=== PATIENT | male | born 1970 | race Caucasian/White ===

== ENCOUNTER → 2017-04-18 | Outpatient (REF) | payer OTHER | LOC: M SFHCPLAZ 08:02 | PROVIDERS: ATTEND Internal Medicine | DX: Z11.3 Encounter for screening for infections with a predominantly sexual mode of transmission (principal); J34.89 Other specified disorders of nose and nasal sinuses ==

== ENCOUNTER → 2020-08-28 | Outpatient (CLI) | payer OTHER ==
[~2020-08-28] MED LIST: LORA-243 PO; MELA3TAB49 PO; PRAZ2CAP PO; VALA500T5 PO
== END ==
LOC: M LABSMTC 08:20
PROVIDERS: ATTEND Anesthesiology
DX: Z01.812 Encounter for preprocedural laboratory examination (principal); Z11.52 Encounter for screening for COVID-19

== ENCOUNTER 2020-09-02 06:37 | Day surgery (SDC) | payer OTHER ==
[~2020-09-02] VITALS: Ht 180.3 cm; Wt 100.2 kg
[2020-09-02] MEDS ORDERED: LIDOCAINE 2% MDV 20ML VIAL As Ordered ONE (06:47)
[2020-09-02] MEDS ORDERED: LIDOCAINE 2% 100MG/5ML SDV (FOR ANES.) As Ordered ONE (06:47)
[2020-09-02] MEDS ORDERED: propofoL 200 MG/20 ML VIAL As Ordered ONE ×2 (06:47→07:41)
--- NOTE | 2020-09-02 07:56 | ROOR ---
Patient Name: Lokesh Alexandra Procedure Date: 09/02/2020 7:31 AM Date of : 1970 Age: 50 Room: [facility] Gender: Male Note Status: Finalized Procedure: Colonoscopy Indications: Screening for colorectal malignant neoplasm Providers: Mich Castro Jr, MD Referring MD: Alfonso Coyle, ASHLYN WU MD Requesting Provider: Medicines: Propofol per Anesthesia Complications: No immediate complications. Procedure: Pre-Anesthesia Assessment: - Prior to the procedure, a History and Physical was performed, and patient medications and allergies were reviewed. The patient is competent. The risks and benefits of the procedure and the sedation options and risks were discussed with the patient. All questions were answered and informed consent was obtained. Patient identification and proposed procedure were verified by the physician and the nurse in the pre-procedure area and in the procedure room. Mental Status Examination: alert and oriented. Airway Examination: normal oropharyngeal airway and neck mobility. Respiratory Examination: clear to auscultation. CV Examination: normal. ASA Grade Assessment: II - A patient with mild systemic disease. After reviewing the risks and benefits, the patient was deemed in satisfactory condition to undergo the procedure. The anesthesia plan was to use moderate sedation / analgesia (conscious sedation). Immediately prior to administration of medications, the patient was re-assessed for adequacy to receive sedatives. The heart rate, respiratory rate, oxygen saturations, blood pressure, adequacy of pulmonary ventilation, and response to care were monitored throughout the procedure. The physical status of the patient was re-assessed after the procedure. The Colonoscope was introduced through the anus and advanced to the cecum, identified by appendiceal orifice and ileocecal valve. The colonoscopy was performed without difficulty. The patient tolerated the procedure well. The quality of the bowel preparation was adequate. Findings: The rectum, recto-sigmoid colon, descending colon, transverse colon, ascending colon, cecum, appendiceal orifice and ileocecal valve appeared normal. A diminutive polyp was found in the sigmoid colon. The polyp was removed with a jumbo cold forceps. Resection and retrieval were complete. Impression: - The rectum, recto-sigmoid colon, descending colon, transverse colon, ascending colon, cecum, appendiceal orifice and ileocecal valve are normal. - One diminutive polyp in the sigmoid colon, removed with a jumbo cold forceps. Resected and retrieved. Recommendation: - Discharge patient to home (ambulatory). - Repeat colonoscopy in 5-10 years for surveillance based on pathology results. Procedure Code(s): --- Professional --- 20009, Colonoscopy, flexible; with biopsy, single or multiple Diagnosis Code(s): --- Professional --- Z12.11, Encounter for screening for malignant neoplasm of colon K63.5, Polyp of colon CPT copyright 2019 [employer]. All rights reserved. The codes documented in this report are preliminary and upon buggy driver review may be revised to meet current compliance requirements. Mich Castro MD Mich Castro Jr, MD 09/02/2020 7:55:46 AM Electronically signed by Mich Castro Jr, MD Number of Addenda: 0 Note Initiated On: 09/02/2020 7:31 AM Estimated Blood Loss: Estimated blood loss: none.
[2020-09-02 08:13] VITALS: BP 130/67
== END 2020-09-02 08:23 | disposition home or self-care (01) ==
LOC: M OPP 06:37
PROVIDERS: ATTEND Surgery
DX: Z12.11 Encounter for screening for malignant neoplasm of colon (principal); K63.5 Polyp of colon; I48.91 Unspecified atrial fibrillation; G47.30 Sleep apnea, unspecified; F17.210 Nicotine dependence, cigarettes, uncomplicated; Z79.899 Other long term (current) drug therapy; Z88.8 Allergy status to other drugs, medicaments and biological substances